=== PATIENT | female | born 1955 | race Caucasian/White ===

== ENCOUNTER 2021-05-01 09:48 | Emergency (ER) | payer MEDICARE ==
[2021-05-01] MEDS ORDERED: TORAdol 30 mg Injection IM ONE (10:27)
[2021-05-01 10:28] VITALS: O2SAT 98
[2021-05-01] MEDS ORDERED: TORAdol 30 mg Injection ONE (10:30)
[2021-05-01] MEDS ORDERED: CORTISPORIN EAR DROPS 10 ML SUSPENSION OT ONE (10:34)
--- NOTE | 2021-05-01 10:37 | ERPHSYRPT ---
- History of Present Illness Time Seen by Provider: 05/01/21 09:50 Source: patient Exam Limitations: no limitations Patient Subjective Stated Complaint: "My right ear hurts." Triage Nursing Assessment: patient reported a 3 day progressive onset of right sided ear pain with associated neck pain. She reported that she is always itching her ears. She is concerned that she may have an ear infection. She reported dizziness today. Denied any other symptoms at this time. She denied difficulty speaking, swallowing, writing, or understanding written/spoken language. Denied chest pain, shortness of breath, nausea/vomiting. Pupils 3mm bilateral with brisk reaction. Right EAC with significant erythema and purulent drainage. right sided lymphadenopathy. Left EAC without erythema/edema drainage. left TM adkins with positive cone of light. No noted focal/global neurological deficits. Physician History: Patient is a 65-year-old female presents to our emergency department for evaluation of right ear pain and drainage. Symptoms started 3 days ago. Pain has been progressively worse. There is tenderness at the right neck the same side of her involved ear likely reactive lymphadenopathy. No trauma. No fever. No headache. Patient experiences slight dizziness when she moves her head. Dizziness resolves at rest. Symptoms are moderate in intensity. Manipulation of the auricle and tragus reproduce symptoms. Patient has significant pain during otoscopy. Patient is otherwise healthy. She voices no other complaints at this time. Timing/Duration: gradual onset Severity: moderate ENT Location: ear (R) Modifying Factors: Improves With: activity Associated Symptoms: dizziness, ear drainage, No fever, No drooling, No facial pain/swelling, No headache, No motion sickness, No nasal congestion/drainage, No epistaxis, No nasal foreign body, No sinus infection, No sore throat, No difficulty swallowing Allergies/Adverse Reactions: No Known Drug Allergies Allergy (Unverified 05/01/21 10:10) Hx Tetanus, Diphtheria Vaccination/Date Given: No Hx Influenza Vaccination/Date Given: Yes Travel Risk - International Travel Have you traveled outside of the country in past 3 weeks: No - Coronavirus Screening Are you exhibiting any of the following symptoms?: No Close contact with a COVID-19 positive Pt in past 14-21 Days: No - Vaccine Status Have you recieved a Covid-19 vaccination: Yes [employer]: [employer] - Vaccination Dates Date of 2cond Vaccination (if applicable): 08/2020 - Review of Systems Constitutional: No Symptoms, No Fever, No Chills Eyes: No Symptoms Ears, Nose, & Throat: No Symptoms Respiratory: No Symptoms, No Cough, No Dyspnea Cardiac: No Symptoms, No Chest Pain, No Edema, No Syncope Abdominal/Gastrointestinal: No Symptoms, No Abdominal Pain, No Nausea, No Vomiting, No Diarrhea Genitourinary Symptoms: No Symptoms, No Dysuria Musculoskeletal: No Symptoms, No Back Pain, No Neck Pain Skin: No Symptoms, No Rash Neurological: No Symptoms, No Dizziness, No Focal Weakness, No Sensory Changes Psychological: No Symptoms Endocrine: No Symptoms Hematologic/Lymphatic: No Symptoms Immunological/Allergic: No Symptoms All Other Systems: Reviewed and Negative - Past Medical History Pertinent Past Medical History: Yes Cardiac History: Coronary Artery Disease, Hypertension Endocrine Medical History: Diabetes Type II, Hypothyroidism Female Reproductive Disorders: Breast Cancer Other Medical History: peripheral neuropathy - Past Surgical History Past Surgical History: Yes Cardiac: CABG Gastrointestinal: Appendectomy Female Surgical History: Hysterectomy Other Surgical History: R lumpectomy - Social History Smoking Status: Never smoker Exposure to second hand smoke: No Drug Use: none Patient Lives Alone: No - Female History Hx Now: No - Nursing Vital Signs Nursing Vital Signs: Initial Vital Signs Pulse Rate 71 05/01/21 09:49 Respiratory Rate 18 05/01/21 09:49 Blood Pressure 144/81 05/01/21 09:49 O2 Sat by Pulse Oximetry 98 05/01/21 09:49 Pain Scale Pain Intensity 10 - Physical Exam General Appearance: no apparent distress, alert Eye Exam: bilateral eye: normal inspection, PERRL, EOMI Ear Exam: right ear: swelling, tenderness, other (No mastoid pain swelling erythema or tenderness.), left ear: auricle normal, canal normal, TM normal Nasal Exam: normal inspection Throat Exam: pharynx normal, moist mucus membranes, No tonsillar exudate Neck Exam: normal inspection, non-tender (Right cervical lymphadenopathy likely reactive to ear infection), supple Cardiovascular/Respiratory Exam: normal breath sounds, regular rate/rhythm, heart sounds normal, No decreased breath sounds, No paradoxical movements, No tachycardia Abdominal Exam: non-tender, soft, no organomegaly Neurologic Exam: alert, oriented x 3, sensation nml, No motor deficits Skin Exam: normal color, warm, dry SpO2 Interpretation: normal SpO2: 98 O2 Delivery: Room Air - Course Nursing assessment & vital signs reviewed: Yes Ordered Tests: Medication Summary Discontinued Medications Generic Name Dose Route Start Last Admin Trade Name Malinda PRN Reason Stop Dose Admin Ketorolac Tromethamine 30 mg 05/01/21 10:27 05/01/21 10:31 Ketorolac Tromethamine 30 Mg/Ml Inj IM 05/01/21 10:28 30 mg STAT ONE Administration Ketorolac Tromethamine Confirm 05/01/21 10:30 Ketorolac Tromethamine 30 Mg/Ml Inj Administered 05/01/21 10:31 Dose 30 mg .ROUTE .STK-MED ONE Neomycin/Polymyxin/Hydrocortisone Confirm 05/01/21 10:34 Neomy Sulf/Polymyx B Sulf/Hc 10 Ml Otic Suspension Administered 05/01/21 10:35 Dose 10 ml OT .STK-MED ONE - Progress Progress: improved Progress Note: Patient reassessed. Pain improved. Patient has no otitis externa. We inserted an ear wick. Patient received Cortisporin eardrops. No mastoid tenderness or pain. No mastoiditis. Some tenderness at the right side of neck due to reactive lymphadenopathy. Patient has some dizziness when she moves her head only. Dizziness resolves when she is resting in a static position. Patient states he is ready for discharge. Patient referred to ENT for further evaluation and treatment. Vital stable. Patient voices no other complaints at this time. She states he is ready for discharge. Portions of this note were created with voice recognition technology. There may be grammatical, spelling, punctuation or sound alike errors 05/01/21 10:39 [id number] analgesics as needed as directed 05/01/21 10:44 Counseled pt/family regarding: diagnosis, need for follow-up - Departure Departure Disposition: Home Clinical Impression: Otitis externa Condition: Stable Critical Care Time: No Additional Instructions: Discharge/Care Plan NBA CALLES was seen on 05/01/21 in the Emergency Room. The patient was counseled regarding Diagnosis,Lab results, Imaging studies, need for follow up and when to return to the Emergency Room. Prescriptions given: Discharge Note I have spoken with the patient and/or caregivers. I have explained the patient's condition, diagnosis and treatment plan based on the information available to me at this time. I have answered the patient's and/or caregiver's questions and addressed any concerns. The patient and/or caregivers have as good understanding of the patient's diagnosis, condition and treatment plan as can be expected at this point. The vital signs have been stable. The patient's condition is stable and appropriate for discharge from the emergency department. The patient will pursue further outpatient evaluation with the primary care physician or other designated or consulting physician as outlined in the discharge instructions. The patient and/or caregivers are agreeable to this plan of care and follow-up instructions have been explained in detail. The patient and/or caregivers have received these instruction. The patient/and or caregivers are aware that any significant change in condition or worsening of symptoms should prompt an immediate return to this or the closest emergency department or call 911. Prescriptions: Peyman/Baci/Poly/Hc Ear Susp [Cortisporin Ear Drops 10 ml Suspension] 10 ml OT QID 7 Days #4 drops
[2021-05-01] MEDS ORDERED: CORTISPORIN EAR DROPS Solution 1OML OT ONE (10:40)
[2021-05-01 10:54] VITALS: BP 127/99; PULSE 70
== END 2021-05-01 10:53 | disposition home or self-care (01) ==
LOC: ED 09:48
DX: H60.501 Unspecified acute noninfective otitis externa, right ear (principal); H92.11 Otorrhea, right ear; R42 Dizziness and giddiness; I25.10 Atherosclerotic heart disease of native coronary artery without angina pectoris; I10 Essential (primary) hypertension; E11.42 Type 2 diabetes mellitus with diabetic polyneuropathy
CPT/HCPCS: 96372; 99283; J1885; A9270-GY

== ENCOUNTER 2021-05-03 10:10 | Emergency (ER) | payer MEDICARE ==
[2021-05-03 10:34] VITALS: PULSE 75
[2021-05-03] MEDS ORDERED: PERCOCET TABLET 5/325MG PO ONE (10:51)
[2021-05-03] MEDS ORDERED: PERCOCET TABLET 5/325MG ONE (11:02)
--- NOTE | 2021-05-03 11:02 | ERPHSYRPT ---
- History of Present Illness Time Seen by Provider: 05/03/21 10:14 Patient Subjective Stated Complaint: Pt states "I was here saturday and they put an ear wick in and gave me antibiotics drops but my ear is still killing me. I cannot sleep." Triage Nursing Assessment: Pt presented alert and oriented X 3, skin pwd. PT moaning and cursing, pt grasping at her right ear. Physician History: 65 years old female who was evaluated in the ER 2 days ago for otitis externa, was given Cortisporin presented in the ER with intermittent worsening of right earache moderate to severe intensity sharp nature with some pain in the right upper neck as well. She had a ear wick placed in on previous visit. Denies fever or chills. No difficulty swallowing. No headache. Timing/Duration: gradual onset, days (5) Severity: moderate ENT Location: ear (R) Prearrival Treatment: over the counter meds, prescription meds Associated Symptoms: ear pain (R), ear drainage, swollen glands Allergies/Adverse Reactions: No Known Drug Allergies Allergy (Verified 05/03/21 10:34) Hx Tetanus, Diphtheria Vaccination/Date Given: No Hx Influenza Vaccination/Date Given: Yes Hx Pneumococcal Vaccination/Date Given: No Immunizations Up to Date: Yes Travel Risk - International Travel Have you traveled outside of the country in past 3 weeks: No - Coronavirus Screening Are you exhibiting any of the following symptoms?: No Close contact with a COVID-19 positive Pt in past 14-21 Days: No - Vaccine Status Have you recieved a Covid-19 vaccination: Yes [employer]: [employer] - Vaccination Dates Date of 2cond Vaccination (if applicable): 08/2020 - Review of Systems Constitutional: No Symptoms Eyes: No Symptoms Ears, Nose, & Throat: Ear Pain, Ear Discharge Respiratory: No Symptoms Cardiac: No Symptoms Abdominal/Gastrointestinal: No Symptoms Musculoskeletal: No Symptoms Skin: No Symptoms Neurological: No Symptoms Endocrine: No Symptoms Hematologic/Lymphatic: Adenopathy Immunological/Allergic: No Symptoms - Past Medical History Pertinent Past Medical History: Yes Cardiac History: Coronary Artery Disease, Hypertension Endocrine Medical History: Diabetes Type II, Hypothyroidism Female Reproductive Disorders: Breast Cancer Other Medical History: peripheral neuropathy - Past Surgical History Past Surgical History: Yes Cardiac: CABG Gastrointestinal: Appendectomy Female Surgical History: Hysterectomy Other Surgical History: R lumpectomy - Social History Smoking Status: Never smoker Exposure to second hand smoke: No Drug Use: none Patient Lives Alone: No - Female History Hx Now: No - Nursing Vital Signs Nursing Vital Signs: Initial Vital Signs Temperature 97.8 F 05/03/21 10:30 Pulse Rate 75 05/03/21 10:30 Respiratory Rate 22 05/03/21 10:30 Blood Pressure 138/83 05/03/21 10:30 O2 Sat by Pulse Oximetry 97 05/03/21 10:30 Pain Scale Pain Intensity 10 - Physical Exam General Appearance: no apparent distress, alert Eye Exam: bilateral eye: normal inspection, PERRL, EOMI Ear Exam: right ear: erythema (Canal), swelling, tenderness (Reproducible with movements of pinna), other (TM not visible. No mastoid erythema or tenderness.), left ear: auricle normal, canal normal, TM normal Nasal Exam: normal inspection Throat Exam: normal, pharynx normal, No dental tenderness Neck Exam: normal inspection, non-tender, supple, full range of motion, No men ingismus Cardiovascular/Respiratory Exam: normal breath sounds, regular rate/rhythm Neurologic Exam: alert, oriented x 3, cooperative, glass block bender II-XII nml as tested Skin Exam: normal color SpO2 Interpretation: normal SpO2: 97 O2 Delivery: Room Air Ordered Tests: Medication Summary Discontinued Medications Generic Name Dose Route Start Last Admin Trade Name Malinda PRN Reason Stop Dose Admin Oxycodone/Acetaminophen 1 tab 05/03/21 10:51 Oxycodone Hcl/Apap 5 Mg/325 Mg Tablet PO 05/03/21 10:52 STAT ONE - Progress Progress: pain not gone completely Progress Note: 05/03/21 11:01 She is given symptomatic treatment for pain. She still has significant swelling and some discharge from right ear. TM is not visible. I would stop Cortisporin and start her on ofloxacin eardrops and oral antibiotics. No signs of mastoiditis. Discussed signs symptoms of worsening needing return to ER which she seems understanding. Counseled pt/family regarding: diagnosis, need for follow-up - Departure Departure Disposition: Home Clinical Impression: Otitis externa Condition: Stable Critical Care Time: No Referrals: DOCTOR,NO FAMILY [Primary Care Provider] - Follow up/PCP as directed JUAQUIN BOWERS [NON-STAFF PHY W/O PRIVILEGES] - Follow up/PCP as directed (Call today for appointment for reevaluation) RAFA GARCIA MD [ACTIVE STAFF] - Follow up/PCP as directed (1-2 days for reevaluation) Instructions: Outer Ear Infection Additional Instructions: Take pain medications as needed. Follow-up with primary care/ENT for reevaluation. Return to ER for intractable pain, fever or chills, headache etc. Prescriptions: Hydrocodone/Acetaminophen [Hydrocodone-Acetamin 5-325 mg] 1 tab PO Q6HPRN PRN 3 Days #7 tablet MDD 4 PRN Reason: Pain Amox Tr/Potass Clav. 875 mg [Augmentin 875-125 Tablet] 875 mg PO BID #20 tablet Ofloxacin Otic 5 ml [Floxin Otic 5 ML] 5 ml OT DAILY 7 Days #5 ml
[2021-05-03 11:09] VITALS: BP 132/70; O2SAT 98
== END 2021-05-03 11:39 | disposition home or self-care (01) ==
LOC: ED 10:10
DX: H60.91 Unspecified otitis externa, right ear (principal); I25.10 Atherosclerotic heart disease of native coronary artery without angina pectoris; I10 Essential (primary) hypertension; E11.42 Type 2 diabetes mellitus with diabetic polyneuropathy; Z79.891 Long term (current) use of opiate analgesic
CPT/HCPCS: 99283; A9270-GY

== ENCOUNTER 2023-04-13 06:28 | Emergency (ER) | payer MEDICARE ==
[2023-04-13 06:49] VITALS: TEMP 98.1
[2023-04-13] MEDS ORDERED: Sodium Chloride 0.9% 1000 ML 1,000 ML IV STA (07:08)
[2023-04-13] MEDS ORDERED: Zofran 4 MG/2 ML VIAL IV ONE (07:08)
[2023-04-13] MEDS ORDERED: MORPHINE SULFATE 4 MG INJ IV ONE ×2 (07:08→09:04)
[2023-04-13] MEDS ORDERED: Sodium Chloride 0.9% 1000 ML 1,000 ML ONE (07:21)
[2023-04-13] MEDS ORDERED: Zofran 4 MG/2 ML VIAL ONE (07:21)
[2023-04-13] MEDS ORDERED: MORPHINE SULFATE 4 MG INJ ONE ×2 (07:21→09:09)
--- NOTE | 2023-04-13 07:25 | ERPHSYRPT ---
- History of Present Illness Time Seen by Provider: 04/13/23 07:21 Historian: patient Exam Limitations: no limitations Patient Subjective Stated Complaint: pt states she woke up with pain in her rt back and rt hip radiating around to rt flank. started vomiting at approx 0100 Triage Nursing Assessment: pt alert and oreinted, answers questions approp. pt ambulates into room with steady gait noted. respirations nonlabored. skin warm and d ry. abd soft and nontender to light palpation. pt reports pain in rt back that radiates around to rt flank. bowel sounds x4. abd soft and nontender. Physician History: pt states she woke up with pain in her right back and right hip radiating around to right flank. started vomiting at approximately 0100 hrs Timing/Duration: today Activities at Onset: none Quality: fullness Abdominal Pain Onset Location: flank (right) Pain Radiation: groin (right) Severity of Pain-Max: moderate Severity of Pain-Current: moderate Associated Symptoms: other (constipation) Allergies/Adverse Reactions: No Known Drug Allergies Allergy (Verified 04/13/23 06:49) Home Medications: Amlodipine Besylate [Norvasc] 2.5 mg PO DAILY 04/13/23 [History] Atorvastatin Calcium [Lipitor] 20 mg PO DAILY 04/13/23 [History] Gabapentin [Neurontin ] 300 mg PO TID 04/13/23 [History] Levothyroxine Sodium [Synthroid] 125 mcg PO DAILY 04/13/23 [History] Metformin HCl [Metformin ER Osmotic] 1,000 mg PO DAILY 04/13/23 [History] Hx Tetanus, Diphtheria Vaccination/Date Given: Yes Hx Influenza Vaccination/Date Given: No Hx Pneumococcal Vaccination/Date Given: No Immunizations Up to Date: Yes Travel Risk - International Travel Have you traveled outside of the country in past 3 weeks: No - Coronavirus Screening Are you exhibiting any of the following symptoms?: No Close contact with a COVID-19 positive Pt in past 14-21 Days: No - Vaccine Status Have you recieved a Covid-19 vaccination: Yes [employer]: [employer] [place] - Vaccination Dates Date of 2cond Vaccination (if applicable): 2020 - Review of Systems Constitutional: No Fever, No Chills Eyes: No Symptoms Ears, Nose, & Throat: No Symptoms Respiratory: No Cough, No Dyspnea Cardiac: No Chest Pain, No Edema, No Syncope Abdominal/Gastrointestinal: Abdominal Pain, No Nausea, No Vomiting, No Diarrhea Genitourinary Symptoms: No Dysuria Musculoskeletal: No Back Pain, No Neck Pain Skin: No Rash Neurological: No Dizziness, No Focal Weakness, No Sensory Changes Psychological: No Symptoms Endocrine: No Symptoms All Other Systems: Reviewed and Negative - Past Medical History Pertinent Past Medical History: Yes Neurological History: Peripheral Neuropathy Cardiac History: Coronary Artery Disease, High Cholesterol, Hypertension, Other Respiratory History: No Pertinent History Endocrine Medical History: Diabetes Type II, Hypothyroidism, Other Musculoskeletal History: No Pertinent History Female Reproductive Disorders: Breast Cancer Other Medical History: BREAST CANCER 2013 [place] WITH RADIATION AND LUMPECTOMY AND H ORMONE PILL WHICH PATIENT REPORTS IS THE MED SHE HAD SIDE EFFECTS. THYROIDECTOMY 2004. HEART SURGERY FOR VALVE REPAIR AND VALVE REPLACEMENT 2019 - Past Surgical History Past Surgical History: Yes Cardiac: Valve Replacement Gastrointestinal: Appendectomy Female Surgical History: Hysterectomy Other Surgical History: R lumpectomy - Social History Smoking Status: Never smoker Exposure to second hand smoke: No Drug Use: none Patient Lives Alone: No - Nursing Vital Signs Nursing Vital Signs: Initial Vital Signs Temperature 98.1 F 04/13/23 06:35 Pulse Rate 80 04/13/23 06:35 Respiratory Rate 22 04/13/23 06:35 Blood Pressure 124/60 04/13/23 06:35 O2 Sat by Pulse Oximetry 97 04/13/23 06:35 Pain Scale Pain Intensity 10 - Physical Exam General Appearance: no apparent distress, alert Eye Exam: PERRL/EOMI, eyes nml inspection Ears, Nose, Throat Exam: normal ENT inspection, pharynx normal, moist mucous membranes Neck Exam: normal inspection, non-tender, supple, full range of motion Respiratory Exam: normal breath sounds, lungs clear, No respiratory distress Cardiovascular Exam: regular rate/rhythm, normal heart sounds Gastrointestinal/Abdomen Exam: tenderness (right flank), No mass Back Exam: normal inspection, normal range of motion, No CVA tenderness, No vertebral tenderness Extremity Exam: normal inspection, normal range of motion, pelvis stable Neurologic Exam: alert, oriented x 3, cooperative, normal mood/affect, nml cerebellar function, sensation nml, No motor deficits Skin Exam: normal color, warm, dry SpO2: 97 - Course Nursing assessment & vital signs reviewed: Yes Ordered Tests: Active Orders 24 hr Category Date Time Status EKG-ER Only STAT Care 04/13/23 07:08 Active ABDOMEN AND PELVIS W/0 CONTRAS [CT] Stat Exams 04/13/23 07:09 Completed AMYLASE Stat Lab 04/13/23 07:30 Completed CBC W DIFF Stat Lab 04/13/23 07:30 Completed CMP Stat Lab 04/13/23 07:30 Completed LIPASE Stat Lab 04/13/23 07:30 Completed UA W/RFX UR CULTURE Stat Lab 04/13/23 08:44 Received Medication Summary Generic Name Dose Route Start Last Admin Trade Name Freq PRN Reason Stop Dose Admin Nystatin 1 gm 04/13/23 10:00 04/13/23 08:23 Nystatin 15 Gm Powder TP 05/13/23 09:59 1 gm BID SLIM Administration Discontinued Medications Generic Name Dose Route Start Last Admin Trade Name Freq PRN Reason Stop Dose Admin Sodium Chloride 1,000 mls @ 999 mls/hr 04/13/23 07:08 04/13/23 08:37 Sodium Chloride 0.9% 1000 Ml IV 04/13/23 08:08 Infused .Q1H1M STA Infusion Sodium Chloride Confirm 04/13/23 07:21 Sodium Chloride 0.9% 1000 Ml Administered 04/13/23 07:22 Dose 1,000 mls @ ud .ROUTE .STK-MED ONE Ketorolac Tromethamine 30 mg 04/13/23 09:04 Ketorolac Tromethamine 30 Mg/Ml Inj IV 04/13/23 09:05 STAT ONE Ketorolac Tromethamine Confirm 04/13/23 09:09 Ketorolac Tromethamine 30 Mg/Ml Inj Administered 04/13/23 09:10 Dose 30 mg .ROUTE .STK-MED ONE Morphine Sulfate 4 mg 04/13/23 07:08 04/13/23 07:23 Morphine Sulfate 4 Mg/Ml Injection IV 04/13/23 07:09 4 mg STAT ONE Administration Morphine Sulfate Confirm 04/13/23 07:21 Morphine Sulfate 4 Mg/Ml Injection Administered 04/13/23 07:22 Dose 4 mg .ROUTE .STK-MED ONE Morphine Sulfate 4 mg 04/13/23 09:04 Morphine Sulfate 4 Mg/Ml Injection IV 04/13/23 09:05 STAT ONE Morphine Sulfate Confirm 04/13/23 09:09 Morphine Sulfate 4 Mg/Ml Injection Administered 04/13/23 09:10 Dose 4 mg .ROUTE .STK-MED ONE Ondansetron HCl 4 mg 04/13/23 07:08 04/13/23 07:22 Ondansetron Hcl 4 Mg/2 Ml Vial IV 04/13/23 07:09 4 mg STAT ONE Administration Ondansetron HCl Confirm 04/13/23 07:21 Ondansetron Hcl 4 Mg/2 Ml Vial Administered 04/13/23 07:22 Dose 4 mg .ROUTE .STK-MED ONE Tamsulosin HCl 0.4 mg 04/13/23 08:51 04/13/23 08:58 Tamsulosin Hcl 0.4 Mg Cap PO 04/13/23 08:52 0.4 mg DAILY ONE Administration Tamsulosin HCl Confirm 04/13/23 08:57 Tamsulosin Hcl 0.4 Mg Cap Administered 04/13/23 08:58 Dose 0.4 mg .ROUTE .STK-MED ONE Lab/Rad Data: Laboratory Result Diagrams 04/13/23 07:30 04/13/23 07:30 Laboratory Results 04/13/23 04/13/23 Range/Units 07:30 07:30 WBC 9.4 (4.0-10.5) x10^3/uL RBC 4.28 (4.1-5.4) x10^6/uL Hgb 13.5 (12.0-16.0) g/dL Hct 41.6 (35-47) % MCV 97.2 (78-100) fL MCH 31.5 (26-32) pg MCHC 32.5 (32-36) g/dL RDW 13.8 (11.5-14.0) % Plt Count 165 (150-450) x10^3/uL MPV 11.3 H (7.5-11.0) fL Gran % 81.5 H (36.0-66.0) % Immature Gran % (Auto) 0.5 H (0.00-0.4) % Nucleat RBC Rel Count 0.0 (0.00-0.1) % Eos # (Auto) 0.07 (0-0.5) x10^3/uL Immature Gran # (Auto) 0.05 H (0.00-0.03) x10^3u/L Absolute Lymphs (auto) 1.01 (1.0-4.6) x10^3/uL Absolute Monos (auto) 0.54 (0.0-1.3) x10^3/uL Absolute Nucleated RBC 0.00 (0.00-0.01) x10^3u/L Lymphocytes % 10.8 L (24.0-44.0) % Monocytes % 5.8 (0.0-12.0) % Eosinophils % 0.7 (0.00-5.0) % Basophils % 0.7 (0.0-0.4) % Absolute Granulocytes 7.62 H (1.4-6.9) x10^3/uL Basophils # 0.07 (0-0.4) x10^3/uL Sodium 136 L (137-145) mmol/L Potassium 4.4 (3.5-5.1) mmol/L Chloride 102 (98-107) mmol/L Carbon Dioxide 26 (22-30) mmol/L Anion Gap 12.8 (5-15) MEQ/L BUN 8 (7-17) mg/dL Creatinine 0.53 (0.52-1.04) mg/dL Estimated GFR 101.9 ML/MIN Glucose 204 H (74-106) mg/dL Calcium 9.0 (8.4-10.2) mg/dL Total Bilirubin 1.00 (0.2-1.3) mg/dL AST 38 H (14-36) U/L ALT 29 (0-35) U/L Alkaline Phosphatase 155 H (38-126) U/L Serum Total Protein 7.6 (6.3-8.2) g/dL Albumin 4.0 (3.5-5.0) g/dL Amylase 56 (30-110) U/L Lipase 60 (23-300) U/L Name: NBA CALLES Attending Physician: TOMASA ADRIAN IMAGING REPORT : 1955 Age: 67 Sex: F Location: ED Report #: [id number] Exam Date: 04/13/23 Status: [facility] Radiology #: Procedures: [id number] CT/ABDOMEN AND PELVIS W/0 CONTRAS CLINICAL HISTORY:right flank pain COMPARISON:None. TECHNIQUE:A CT scan of the abdomen and pelvis was performed without contrast. Coronal and sagittal reconstructive images were also obtained and submitted for diagnostic interpretation. FINDINGS: Abdomen: The liver is moderately enlarged measuring 18.5 cm. It displays coarse parenchymal texture and uneven margins. Right hepatic lobe segment V small hypodense focal area measures 12 mm. The intrahepatic biliary radicals and the bile ducts are normal. Multiple gallbladder stones were seen the largest measuring [address] evidence of acute cholecystitis. The spleen, pancreas, and adrenal glands are unremarkable. Right ureteric distal portion small obstructing calculus measuring 4 mm (HU 410) with resulting mild dilatation of the upstream ureter and pelvicalyceal system. Starndy nikky-renal and nikky-ureteric fat planes were noticed. No right renal calculi or masses. The left kidney was unremarkable. No calculi, masses, or hydronephrosis. No left ureteric stones. Bilateral renal small cortical cysts of fluid density only one at the right side that shows minute hyperdense focus/calcification measures 17 mm (Bosniak II). The ascending colon, the transverse colon, the descending colon, visualized small bowel loops are unremarkable. No CT evidence of acute appendicitis. There is no evidence of significant enlargement of the mesenteric or retroperitoneal lymph nodes. No ascites Pelvis: The urinary bladder was empty. The uterus was not visualized likely surgically removed. No gross adnexal abnormality was seen. The rectosigmoid colon is unremarkable. No evidence of pelvic lymphadenopathy. A scan through the lower chest reveals sternotomy sutures with bilateral lungs basal subpleural thin atelectatic bands. The scanned osseous structures were unremarkable. IMPRESSION: 1. Right distal ureteric small obstructing calculus measuring 4 mm (HU 410) with resulting mild dilatation of the upstream ureter and pelvicalyceal system. 2. Multiple gallbladder stones without CT evidence of acute cholecystitis. 3. Moderate hepatomegaly with a picture of chronic liver disease and right hepatic lobe segment V small hypodense focal area measures 12 mm would recommend further workup and if indicated CT triphasic is advised. Electronically Signed by: Mane Grubbs MD. (04/13/2023 08:45:13 EST) - Progress Progress: improved, pain not gone completely Progress Note: 04/13/23 08:58 She did not have this type of symptoms before. Patient is informed about CAT scan results which include right ureteropelvic junction stone which is same 4 mm almost going to pass into the bladder and patient also has a gallstone and hepatomegaly. Patient is explained about how she will past kidney stone into her bladder and afterwards she may have passed that in her urine. We advised her to strain her urine if possible and if she can find the stone then she can return it for the stone analysis. Patient is also informed about gallstones which are nonobstructing but she is advised that she is still take care of that as an outpatient surgery in the future. She understood that and she is going to talk to her primary care physician. Counseled pt/family regarding: lab results, diagnosis, need for follow-up, rad results Medical Desision Making - Independent Historian Additional History obtained from: Spouse - Diagnostic Testing Diagnostic test were ordered, analyzed, and reviewed by me: Yes Radiological Interpretation: Teleradiologist Report - Risk of complications Low Risk: Low risk of morbidity from additional dx testing or treatment The pt has a mod risk of morbidity or mortality based on: Need for prescription drug management, Need for minor surgical intervention in patient with know risk factors - Departure Departure Disposition: Home Clinical Impression: Right distal ureteral calculus, Gall bladder stones, Enlargement of liver Type 2 diabetes mellitus Qualifiers: Diabetes mellitus long-term insulin use: without intermediate manager use Diabetes mellitus complication status: with hyperglycemia Qualified Code(s): E11.65 - Type 2 diabetes mellitus with hyperglycemia Condition: Stable Critical Care Time: No Referrals: ANAI ALLAN MD [Primary Care Provider] - Follow Up with PCP/3 days Instructions: Kidney Stones (DC), Flank Pain Additional Instructions: On CAT scan you have a right-sided kidney stone which is almost going to pass into your bladder. Please strain your urine and if you can get the stone sample please bring it to the lab for stone analysis. You also have a gallstone but it is not bothering you at this point of time. Follow-up with your primary care physician for management of gallstone as an outpatient. Follow-up with your primary care physician in 2 to 3 days Discharge/Care Plan NBA CALLES was seen on 04/13/23 in the Emergency Room. The patient was counseled regarding Diagnosis,Lab results, Imaging studies, need for follow up and when to return to the Emergency Room. Prescriptions given: Discharge Note I have spoken with the patient and/or caregivers. I have explained the patient's condition, diagnosis and treatment plan based on the information available to me at this time. I have answered the patient's and/or caregiver's questions and addressed any concerns. The patient and/or caregivers have as good understanding of the patient's diagnosis, condition and treatment plan as can be expected at this point. The vital signs have been stable. The patient's condition is stable and appropriate for discharge from the emergency department. The patient will pursue further outpatient evaluation with the primary care physician or other designated or consulting physician as outlined in the discharge instructions. The patient and/or caregivers are agreeable to this plan of care and follow-up instructions have been explained in detail. The patient and/or caregivers have received these instruction. The patient/and or caregivers are aware that any significant change in condition or worsening of symptoms should prompt an immediate return to this or the closest emergency department or call 911. Prescriptions: Tamsulosin HCl 0.4 mg [Flomax 0.4 MG] 0.4 mg PO DAILY #15 cap
[2023-04-13 07:53] LABS: Absolute Neutrophil Ct (ANC) 7.62 x10^3/uL (1.4-6.9); BASOPHIL % 0.7 % (0.0-0.4); Basophil (Absolute #) 0.07 x10^3/uL (0-0.4); Eosinophil % 0.7 % (0.00-5.0); Eosinophil (Absolute #) 0.07 x10^3/uL (0-0.5); Hematocrit 41.6 % (35-47); Hemoglobin 13.5 g/dL (12.0-16.0); IMMATURE GRAN # 0.05 x10^3u/L (0.00-0.03); IMMATURE GRAN % 0.5 % (0.00-0.4); Lymphocyte (Absolute #) 1.01 x10^3/uL (1.0-4.6); Lymphocytes % 10.8 % (24.0-44.0); Mean Cell Volume 97.2 fL (78-100); Mean Corpuscular Hemoglobin 31.5 pg (26-32); Mean Corpuscular Hgb Concent. 32.5 g/dL (32-36); Mean Platelet Volume 11.3 fL (7.5-11.0); Monocyte (Absolute #) 0.54 x10^3/uL (0.0-1.3); Monocytes % 5.8 % (0.0-12.0); Neutrophil % 81.5 % (36.0-66.0); Platelet Count 165 x10^3/uL (150-450); Red Blood Count 4.28 x10^6/uL (4.1-5.4); Red Cell Distribution Width 13.8 % (11.5-14.0); White Blood Count 9.4 x10^3/uL (4.0-10.5)
[2023-04-13 08:06] LABS: ANION GAP 12.8 MEQ/L (5-15); Creatinine 1 0.53 mg/dL (0.52-1.04); EST GLOMERULAR FILTRATION RATE 101.9 ML/MIN; Potassium 4.4 mmol/L (3.5-5.1); Total Protein 7.6 g/dL (6.3-8.2)
--- NOTE | 2023-04-13 08:48 | XRAY ---
CLINICAL HISTORY:right flank pain COMPARISON:None. TECHNIQUE:A CT scan of the abdomen and pelvis was performed without contrast. Coronal and sagittal reconstructive images were also obtained and submitted for diagnostic interpretation. FINDINGS: Abdomen: The liver is moderately enlarged measuring 18.5 cm. It displays coarse parenchymal texture and uneven margins. Right hepatic lobe segment V small hypodense focal area measures 12 mm. The intrahepatic biliary radicals and the bile ducts are normal. Multiple gallbladder stones were seen the largest measuring [address] evidence of acute cholecystitis. The spleen, pancreas, and adrenal glands are unremarkable. Right ureteric distal portion small obstructing calculus measuring 4 mm (HU 410) with resulting mild dilatation of the upstream ureter and pelvicalyceal system. Starndy nikky-renal and nikky-ureteric fat planes were noticed. No right renal calculi or masses. The left kidney was unremarkable. No calculi, masses, or hydronephrosis. No left ureteric stones. Bilateral renal small cortical cysts of fluid density only one at the right side that shows minute hyperdense focus/calcification measures 17 mm (Bosniak II). The ascending colon, the transverse colon, the descending colon, visualized small bowel loops are unremarkable. No CT evidence of acute appendicitis. There is no evidence of significant enlargement of the mesenteric or retroperitoneal lymph nodes. No ascites Pelvis: The urinary bladder was empty. The uterus was not visualized likely surgically removed. No gross adnexal abnormality was seen. The rectosigmoid colon is unremarkable. No evidence of pelvic lymphadenopathy. A scan through the lower chest reveals sternotomy sutures with bilateral lungs basal subpleural thin atelectatic bands. The scanned osseous structures were unremarkable. IMPRESSION: 1. Right distal ureteric small obstructing calculus measuring 4 mm (HU 410) with resulting mild dilatation of the upstream ureter and pelvicalyceal system. 2. Multiple gallbladder stones without CT evidence of acute cholecystitis. 3. Moderate hepatomegaly with a picture of chronic liver disease and right hepatic lobe segment V small hypodense focal area measures 12 mm would recommend further workup and if indicated CT triphasic is advised. Electronically Signed by: Mane Grubbs MD. (04/13/2023 08:45:13 EST)
[2023-04-13] MEDS ORDERED: Flomax 0.4 MG PO ONE (08:51)
[2023-04-13] MEDS ORDERED: Flomax 0.4 MG ONE (08:57)
[2023-04-13] MEDS ORDERED: TORAdol 30 mg Injection IV ONE (09:04)
[2023-04-13 09:08] LABS: Appearance Cloudy (Clear); Bilirubin Negative (Negative); Blood Large (Negative); Glucose, Urine Negative (Negative); Ketones Trace (Negative); Leukocyte Esterase Moderate (Negative); Nitrite Positive (Negative); Ph 5.5 (4.6-8.0); Protein,Urine Dip 30 (Negative)
[2023-04-13] MEDS ORDERED: TORAdol 30 mg Injection ONE (09:09)
[2023-04-13 09:24] LABS: RBC 21-50 /HPF (0-5); WBC 51-100 /HPF (0-5)
[2023-04-13 09:25] LABS: Bacteria Many /HPF (None Seen)
[2023-04-13 09:37] LABS: ADD URINE CULTURE? YES (NO); Epithelial Cells Few /HPF (None Seen)
[2023-04-13 09:42] VITALS: BP 110/59; PULSE 89; RESP 20; O2SAT 95
[2023-04-13] MEDS ORDERED: NYSTOP POWDER 15 GM TP SCH (10:00)
== END 2023-04-13 09:43 | disposition home or self-care (01) ==
LOC: ED 06:28
DX: N20.1 Calculus of ureter (principal); K80.20 Calculus of gallbladder without cholecystitis without obstruction; R16.0 Hepatomegaly, not elsewhere classified; E11.65 Type 2 diabetes mellitus with hyperglycemia; M25.551 Pain in right hip; M54.9 Dorsalgia, unspecified; R10.9 Unspecified abdominal pain; R11.10 Vomiting, unspecified; E78.5 Hyperlipidemia, unspecified; I10 Essential (primary) hypertension; Z79.84 Long term (current) use of oral hypoglycemic drugs; Z79.899 Other long term (current) drug therapy
CPT/HCPCS: 36000; 36415; 74176; 80053; 81001; 82150; 83690; 85025; 87077; 87086; 87186; 93005; 96374; 96375; 96376; 99284; J1885; J2270; J2405; A9270-GY

== ENCOUNTER 2023-04-14 01:36 | Emergency (ER) | payer MEDICARE ==
[2023-04-14] MEDS ORDERED: Sodium Chloride 0.9% 1000 ML 1,000 ML IV STA ×2 (01:38→03:32)
[2023-04-14] MEDS ORDERED: Sodium Chloride 0.9% 1000 ML 1,000 ML ONE ×2 (01:54→03:28)
[2023-04-14 02:15] LABS: Absolute Neutrophil Ct (ANC) 12.09 x10^3/uL (1.4-6.9); BASOPHIL % 0.4 % (0.0-0.4); Basophil (Absolute #) 0.05 x10^3/uL (0-0.4); Eosinophil % 0.2 % (0.00-5.0); Eosinophil (Absolute #) 0.02 x10^3/uL (0-0.5); Hematocrit 40.7 % (35-47); Hemoglobin 12.8 g/dL (12.0-16.0); IMMATURE GRAN # 0.07 x10^3u/L (0.00-0.03); IMMATURE GRAN % 0.5 % (0.00-0.4); Lymphocyte (Absolute #) 0.42 x10^3/uL (1.0-4.6); Lymphocytes % 3.3 % (24.0-44.0); Mean Cell Volume 101.2 fL (78-100); Mean Corpuscular Hemoglobin 31.8 pg (26-32); Mean Corpuscular Hgb Concent. 31.4 g/dL (32-36); Mean Platelet Volume 10.9 fL (7.5-11.0); Monocyte (Absolute #) 0.19 x10^3/uL (0.0-1.3); Monocytes % 1.5 % (0.0-12.0); Neutrophil % 94.1 % (36.0-66.0); Platelet Count 133 x10^3/uL (150-450); Red Blood Count 4.02 x10^6/uL (4.1-5.4); Red Cell Distribution Width 14.1 % (11.5-14.0); White Blood Count 12.8 x10^3/uL (4.0-10.5)
[2023-04-14 02:41] LABS: ALBUMIN 3.8 g/dL (3.5-5.0); ALKALINE PHOSPHATASE 93 U/L (38-126); ANION GAP 15.2 MEQ/L (5-15); BLOOD UREA NITROGEN 11 mg/dL (7-17); CHLORIDE 100 mmol/L (98-107); Calcium 8.3 mg/dL (8.4-10.2); Carbon Dioxide 22 mmol/L (22-30); Creatinine 1 0.96 mg/dL (0.52-1.04); EST GLOMERULAR FILTRATION RATE 65.3 ML/MIN; ETHYL ALCOHOL < 10 mg/dL (0-10); Glucose 152 mg/dL (74-106); Potassium 3.8 mmol/L (3.5-5.1); SGOT/AST 36 U/L (14-36); SODIUM 133 mmol/L (137-145); Total Protein 7.1 g/dL (6.3-8.2)
--- NOTE | 2023-04-14 02:51 | XRAY ---
CLINICAL HISTORY:fall COMPARISON:None. TECHNIQUE:Axial non-contrast CT scan of the brain was performed from the skull base to the high parietal region. Coronal and sagittal reconstructions were also obtained. FINDINGS: No definite calvarium fractures. No intracerebral or extra axial hematoma. Prominent ventricular system and extra-axial CSF spaces suggestive of age-related involutional changes. The visualized brain parenchyma shows a normal appearance. No focal parenchymal abnormalities are demonstrated. Villegas-white matter differentiation is maintained. No midline shifts or deformity. Normal size and configuration of the cerebral ventricles. Normal CT appearance of the posterior fossa structures namely the cerebellar hemispheres, brainstem and cerebellar peduncles. Scanned paranasal sinuses are clear. IMPRESSION: 1. No definite calvarium fractures. 2. No intracerebral or extra axial hematoma. 3. Appropriate age-related involutional changes. Electronically Signed by: Mane Grubbs MD. (04/14/2023 02:46:58 EST)
[2023-04-14 03:01] LABS: SGPT/ALT 24 U/L (0-35); TROPONIN 0.036 ng/mL (0.000-0.034)
[2023-04-14] MEDS ORDERED: TYLENOL 325 MG PO STA (03:02)
[2023-04-14] MEDS ORDERED: TYLENOL 325 MG ONE (03:03)
[2023-04-14] MEDS ORDERED: ROCEPHIN 1 Gm-D5w 50 ml Bag** 1 G/50 ML IVPB IV STA (03:24)
--- NOTE | 2023-04-14 03:26 | ERPHSYRPT ---
- History of Present Illness Time Seen by Provider: 04/14/23 03:19 Source: patient Exam Limitations: no limitations Patient Subjective Stated Complaint: EMS states that pt fell going to the bathroom Triage Nursing Assessment: pt came into the er via ambulance; pt was transferred to cot per ems and ed staff; c/o fall; pt denies pain; skin pink, dry, hot to the touch; mucus membranes pink and dry, cracking present to lips; no respiratory distress present; pt is answering questions appropriately; axo x4; pupils 3 mm and PERRL; abrasion to RLE; tachycardic; febrile Physician History: Patient is 67-year-old female with significant past medical history of diabetes hypertension was recently in the emergency room with the right side renal colic which was treated with Flomax to pass the kidney stone down. Patient was doing okay and at around 1:00 patient went to the bathroom and suddenly patient became confused and fell so patient was brought into the emergency room. According to the EMS patient was very confused and talking out of the head and heart rate was high. When patient came to the emergency room patient was alert awake oriented to time place and person and was talking appropriately. Timing/Duration: today Severity: mild Associated Symptoms: weakness Allergies/Adverse Reactions: No Known Drug Allergies Allergy (Verified 04/14/23 01:40) Home Medications: Amlodipine Besylate [Norvasc] 2.5 mg PO DAILY 04/13/23 [History] Atorvastatin Calcium [Lipitor] 20 mg PO DAILY 04/13/23 [History] Gabapentin [Neurontin ] 300 mg PO TID 04/13/23 [History] Levothyroxine Sodium [Synthroid] 125 mcg PO DAILY 04/13/23 [History] Metformin HCl [Metformin ER Osmotic] 1,000 mg PO DAILY 04/13/23 [History] Hx Tetanus, Diphtheria Vaccination/Date Given: Yes Hx Influenza Vaccination/Date Given: No Hx Pneumococcal Vaccination/Date Given: No Travel Risk - International Travel Have you traveled outside of the country in past 3 weeks: No - Coronavirus Screening Are you exhibiting any of the following symptoms?: No Close contact with a COVID-19 positive Pt in past 14-21 Days: No - Vaccine Status Have you recieved a Covid-19 vaccination: Yes 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: [employer] - Vaccination Dates Date of 2cond Vaccination (if applicable): 2020 - Review of Systems Constitutional: Weakness, No Fever, No Chills Eyes: No Symptoms Ears, Nose, & Throat: No Symptoms Respiratory: No Cough, No Dyspnea Cardiac: No Chest Pain, No Edema, No Syncope Abdominal/Gastrointestinal: No Abdominal Pain, No Nausea, No Vomiting, No Delphine rrhea Genitourinary Symptoms: No Dysuria Musculoskeletal: No Back Pain, No Neck Pain Skin: No Rash Neurological: No Dizziness, No Focal Weakness, No Sensory Changes Psychological: No Symptoms Endocrine: No Symptoms All Other Systems: Reviewed and Negative - Past Medical History Pertinent Past Medical History: Yes Neurological History: Peripheral Neuropathy Cardiac History: Coronary Artery Disease, High Cholesterol, Hypertension, Other Respiratory History: No Pertinent History Endocrine Medical History: Diabetes Type II, Hypothyroidism, Other Musculoskeletal History: No Pertinent History Female Reproductive Disorders: Breast Cancer Other Medical History: BREAST CANCER 2013 [place] WITH RADIATION AND LUMPECTOMY AND HORMONE PILL WHICH PATIENT REPORTS IS THE MED SHE HAD SIDE EFFECTS. THYROIDECTOMY 2004. HEART SURGERY FOR VALVE REPAIR AND VALVE REPLACEMENT 2018 - Past Surgical History Past Surgical History: Yes Cardiac: Valve Replacement Gastrointestinal: Appendectomy Female Surgical History: Hysterectomy Other Surgical History: R lumpectomy - Social History Smoking Status: Never smoker Exposure to second hand smoke: No Drug Use: none Patient Lives Alone: No - Nursing Vital Signs Nursing Vital Signs: Initial Vital Signs Temperature 102.8 F 04/14/23 01:37 Pulse Rate 152 H 04/14/23 01:37 Respiratory Rate 18 04/14/23 01:37 Blood Pressure 109/52 04/14/23 01:37 O2 Sat by Pulse Oximetry 87 L 04/14/23 01:37 Pain Scale Pain Intensity 0 - Physical Exam General Appearance: no apparent distress, alert Eye Exam: PERRL/EOMI, eyes nml inspection Ears, Nose, Throat Exam: normal ENT inspection, TMs normal, pharynx normal, moist mucous membranes Neck Exam: normal inspection, non-tender, supple, full range of motion Respiratory Exam: normal breath sounds, lungs clear, No respiratory distress Cardiovascular Exam: regular rate/rhythm, normal heart sounds, normal peripheral pulses Gastrointestinal/Abdomen Exam: soft, normal bowel sounds, No tenderness, No mass Back Exam: normal inspection, normal range of motion, No CVA tenderness, No vertebral tenderness Extremity Exam: normal inspection, normal range of motion, pelvis stable Neurologic Exam: alert, oriented x 3, cooperative, normal mood/affect, nml cerebellar function, nml station & gait, sensation nml, No motor deficits Skin Exam: normal color, warm, dry, No rash Lymphatic Exam: No adenopathy SpO2: 96 - Course Nursing assessment & vital signs reviewed: Yes EKG Interpreted by Me: Sinus Tach - CT Exams Head CT Interpretation: Tele-radiologist Report, No/Intracranial Hemorrhag Ordered Tests: Active Orders 24 hr Category Date Time Status EKG-ER Only STAT Care 04/14/23 01:38 Active ABDOMEN AND PELVIS W/0 CONTRAS [CT] Stat Exams 04/14/23 03:32 Completed CHEST 1 VIEW (PORTABLE) Stat Exams 04/14/23 01:41 Taken HEAD WITHOUT CONTRAST [CT] Stat Exams 04/14/23 01:40 Completed CBC W DIFF Stat Lab 04/14/23 02:13 Completed CMP Stat Lab 04/14/23 02:13 Completed ETHYL ALCOHOL Stat Lab 04/14/23 02:13 Completed TROPONIN Stat Lab 04/14/23 02:13 Completed UA W/RFX UR CULTURE Stat Lab 04/14/23 04:20 Completed Urine Triage Profile Stat Lab 04/14/23 04:20 Completed Medication Summary Generic Name Dose Route Start Last Admin Trade Name Freq PRN Reason Stop Dose Admin Sodium Chloride 1,000 mls @ 999 mls/hr 04/14/23 03:30 04/14/23 05:35 Sodium Chloride 0.9% 1000 Ml IV 05/14/23 03:29 Not Given .Q1H1M SLIM Discontinued Medications Generic Name Dose Route Start Last Admin Trade Name Freq PRN Reason Stop Dose Admin Acetaminophen 650 mg 04/14/23 03:02 04/14/23 03:03 Acetaminophen 325 Mg Tablet PO 04/14/23 03:03 650 mg STAT STA Administration Acetaminophen Confirm 04/14/23 03:03 Acetaminophen 325 Mg Tablet Administered 04/14/23 03:04 Dose 650 mg .ROUTE .STK-MED ONE Sodium Chloride 1,000 mls @ 999 mls/hr 04/14/23 01:38 04/14/23 03:07 Sodium Chloride 0.9% 1000 Ml IV 04/14/23 02:38 Infused .Q1H1M STA Infusion Sodium Chloride Confirm 04/14/23 01:54 Sodium Chloride 0.9% 1000 Ml Administered 04/14/23 01:55 Dose 1,000 mls @ ud .ROUTE .STK-MED ONE Ceftriaxone Sodium/Dextrose 1 g in 50 mls @ 100 mls/hr 04/14/23 03:24 04/14/23 04:20 Rocephin 1 Gm-D5w 50 Ml Bag IV 04/14/23 03:53 Infused STAT STA Infusion Ceftriaxone Sodium/Dextrose Confirm 04/14/23 03:28 Rocephin 1 Gm-D5w 50 Ml Bag Administered 04/14/23 03:29 Dose 1 g in 50 mls @ ud IV .STK-MED ONE Sodium Chloride 1,000 mls @ 999 mls/hr 04/14/23 03:32 04/14/23 03:35 Sodium Chloride 0.9% 1000 Ml IV 04/14/23 04:32 Not Given .Q1H1M STA Lab/Rad Data: Laboratory Result Diagrams 04/14/23 02:13 04/14/23 02:13 Laboratory Results 04/14/23 04/14/23 04/14/23 Range/Units 04:20 04:20 03:15 WBC (4.0-10.5) x10^3/uL RBC (4.1-5.4) x10^6/uL Hgb (12.0-16.0) g/dL Hct (35-47) % MCV (78-100) fL MCH (26-32) pg MCHC (32-36) g/dL RDW (11.5-14.0) % Plt Count (150-450) x10^3/uL MPV (7.5-11.0) fL Gran % (36.0-66.0) % Immature Gran % (Auto) (0.00-0.4) % Nucleat RBC Rel Count (0.00-0.1) % Eos # (Auto) (0-0.5) x10^3/uL Immature Gran # (Auto) (0.00-0.03) x10^3u/L Absolute Lymphs (auto) (1.0-4.6) x10^3/uL Absolute Monos (auto) (0.0-1.3) x10^3/uL Absolute Nucleated RBC (0.00-0.01) x10^3u/L Lymphocytes % (24.0-44.0) % Monocytes % (0.0-12.0) % Eosinophils % (0.00-5.0) % Basophils % (0.0-0.4) % Absolute Granulocytes (1.4-6.9) x10^3/uL Basophils # (0-0.4) x10^3/uL Sodium (137-145) mmol/L Potassium (3.5-5.1) mmol/L Chloride (98-107) mmol/L Carbon Dioxide (22-30) mmol/L Anion Gap (5-15) MEQ/L BUN (7-17) mg/dL Creatinine (0.52-1.04) mg/dL Estimated GFR ML/MIN Glucose (74-106) mg/dL Calcium (8.4-10.2) mg/dL Total Bilirubin (0.2-1.3) mg/dL AST (14-36) U/L ALT (0-35) U/L Alkaline Phosphatase (38-126) U/L Troponin I (0.000-0.034) ng/mL Serum Total Protein (6.3-8.2) g/dL Albumin (3.5-5.0) g/dL Urine Color Dark Yellow A (Yellow) Urine Appearance Turbid A (Clear) Urine pH 5.0 (4.6-8.0) Ur Specific [place] 1.020 (1.005-1.030) Urine Protein 100 A (Negative) Urine Glucose (UA) Negative (Negative) mg/dL Urine Ketones Trace A (Negative) Urine Blood Large A (Negative) Urine Nitrite Positive A (Negative) Urine Bilirubin Small A (Negative) Urine Urobilinogen 1.0 A (0.2) mg/dL Ur Leukocyte Esterase Large A (Negative) U Hyaline Cast (Auto) 11-20 (0-2) /LPF Urine Microscopic RBC 21-50 A (0-5) /HPF Urine Microscopic WBC >100 A (0-5) /HPF Ur Epithelial Cells Moderate A (None Seen) /HPF Urine Bacteria Many A (None Seen) /HPF Urine Culture Reflexed NO (NO) Urine Opiates Level POSITIVE A (NEGATIVE) Ur Methadone NEGATIVE (NEGATIVE) Urine Barbiturates NEGATIVE (NEGATIVE) Ur Phencyclidine (PCP) NEGATIVE (NEGATIVE) Urine Amphetamine NEGATIVE (NEGATIVE) U Benzodiazepine Level NEGATIVE (NEGATIVE) Urine Cocaine NEGATIVE (NEGATIVE) Urine Marijuana (THC) NEGATIVE (NEGATIVE) Ethyl Alcohol (0-10) mg/dL Influenza Type A Ag NEGATIVE (NEGATIVE) Influenza Type B Ag NEGATIVE (NEGATIVE) RSV (PCR) NEGATIVE (NEGATIVE) SARS-CoV-2 (PCR) NEGATIVE (NEGATIVE) 04/14/23 04/14/23 Range/Units 02:13 02:13 WBC 12.8 H (4.0-10.5) x10^3/uL RBC 4.02 L (4.1-5.4) x10^6/uL Hgb 12.8 (12.0-16.0) g/dL Hct 40.7 (35-47) % MCV 101.2 H (78-100) fL MCH 31.8 (26-32) pg MCHC 31.4 L (32-36) g/dL RDW 14.1 H (11.5-14.0) % Plt Count 133 L (150-450) x10^3/uL MPV 10.9 (7.5-11.0) fL Gran % 94.1 H (36.0-66.0) % Immature Gran % (Auto) 0.5 H (0.00-0.4) % Nucleat RBC Rel Count 0.0 (0.00-0.1) % Eos # (Auto) 0.02 (0-0.5) x10^3/uL Immature Gran # (Auto) 0.07 H (0.00-0.03) x10^3u/L Absolute Lymphs (auto) 0.42 L (1.0-4.6) x10^3/uL Absolute Monos (auto) 0.19 (0.0-1.3) x10^3/uL Absolute Nucleated RBC 0.00 (0.00-0.01) x10^3u/L Lymphocytes % 3.3 L (24.0-44.0) % Monocytes % 1.5 (0.0-12.0) % Eosinophils % 0.2 (0.00-5.0) % Basophils % 0.4 (0.0-0.4) % Absolute Granulocytes 12.09 H (1.4-6.9) x10^3/uL Basophils # 0.05 (0-0.4) x10^3/uL Sodium 133 L (137-145) mmol/L Potassium 3.8 (3.5-5.1) mmol/L Chloride 100 (98-107) mmol/L Carbon Dioxide 22 (22-30) mmol/L Anion Gap 15.2 H (5-15) MEQ/L BUN 11 (7-17) mg/dL Creatinine 0.96 (0.52-1.04) mg/dL Estimated GFR 65.3 ML/MIN Glucose 152 H (74-106) mg/dL Calcium 8.3 L (8.4-10.2) mg/dL Total Bilirubin 0.90 (0.2-1.3) mg/dL AST 36 (14-36) U/L ALT 24 (0-35) U/L Alkaline Phosphatase 93 (38-126) U/L Troponin I 0.036 H* (0.000-0.034) ng/mL Serum Total Protein 7.1 (6.3-8.2) g/dL Albumin 3.8 (3.5-5.0) g/dL Urine Color (Yellow) Urine Appearance (Clear) Urine pH (4.6-8.0) Ur Specific [place] (1.005-1.030) Urine Protein (Negative) Urine Glucose (UA) (Negative) mg/dL Urine Ketones (Negative) Urine Blood (Negative) Urine Nitrite (Negative) Urine Bilirubin (Negative) Urine Urobilinogen (0.2) mg/dL Ur Leukocyte Esterase (Negative) U Hyaline Cast (Auto) (0-2) /LPF Urine Microscopic RBC (0-5) /HPF Urine Microscopic WBC (0-5) /HPF Ur Epithelial Cells (None Seen) /HPF Urine Bacteria (None Seen) /HPF Urine Culture Reflexed (NO) Urine Opiates Level (NEGATIVE) Ur Methadone (NEGATIVE) Urine Barbiturates (NEGATIVE) Ur Phencyclidine (PCP) (NEGATIVE) Urine Amphetamine (NEGATIVE) U Benzodiazepine Level (NEGATIVE) Urine Cocaine (NEGATIVE) Urine Marijuana (THC) (NEGATIVE) Ethyl Alcohol < 10 (0-10) mg/dL Influenza Type A Ag (NEGATIVE) Influenza Type B Ag (NEGATIVE) RSV (PCR) (NEGATIVE) SARS-CoV-2 (PCR) (NEGATIVE) 0002 CT/ABDOMEN AND PELVIS W/0 CONTRAS CLINICAL HISTORY:right renal stone COMPARISON:CT abdomen dated 04/13/2023. TECHNIQUE:Contiguous axial images were obtained from the level of the diaphragm to the pubic symphysis without intravenous or oral contrast. Coronal and sagittal reconstructions were likewise performed and indicated to increase the sensitivity for detecting clinically relevant pathology. CT scan was performed according to ALARA (as low as reasonable achievable). FINDINGS: The visualized lung bases are clear. Evaluation of the abdominal and pelvic visceral organs is limited without intravenous contrast. The liver is enlarged in size (approximately 19 cm) with nodular surface contour. Small hypodense area in the segment V of liver (approximately 1 cm).The unenhanced spleen, pancreas, and adrenal glands are grossly unremarkable. The gallbladder shows multiple calculi in the lumen with no CT evidence of cholecystitis. The kidneys are normal in size and attenuation . There is an obstructing calculus of size approx 4 mm in the right distal most ureter immediately proximal to vesicoureteric junction with upstream mild hydroureteronephrosis and perinephric fat stranding. Small non-obstructing right renal concretion in the interpolar calyx.There is no hydronephrosis or perinephric stranding on left side. The left ureter is normal in caliber. No adenopathy or fluid collections are seen. No evidence of focal or diffuse bowel wall thickening or evidence of bowel obstruction is seen. The appendix is unremarkable in the right lower quadrant. The aorta is normal in caliber. The urinary bladder is normal in contour. Pelvic viscera are grossly unremarkable. No aggressive appearing osseous lesions are identified. IMPRESSION: 1. Obstructing right distal most ureteric calculus with upstream hydroureteronephrosis and perinephric fat stranding. Non-obstructing right renal concretion. 2. Cholelithiasis without CT evidence of cholecystitis. 3. Changes of chronic liver parenchymal disease. Small hypodense area in the segment V of liver - stable. 4. No significant interval change since previous CT. - Progress Progress: unchanged Progress Note: 04/14/23 06:32 Considering second CAT scan report which is showing obstructive uropathy on the right side and stone has not moved at all from the previous CAT scan report, and patient is developing hydronephrosis, recontacted for different hospital nearby including [facility] and [facility] but there is no urology service available. So we contacted [facility] and Dr. Mo accepted the patient. She advised patient to be transferred to [facility] emergency room and then she will take care of the patient. Patient is otherwise alert awake oriented in no other symptoms so we will transfer patient via private car. I talked to the patient and her and they are agreeing with the plan Discussed with Dr.: Other (Dr Zapata at [facility]) Counseled pt/family regarding: lab results, diagnosis, need for follow-up, rad results Medical Desision Making - Independent Historian Additional History obtained from: Spouse - Discussion of managment Care discussed with:: hospitalist Reviewed:: Test results, Need for additional workup Agreed on:: Treatment plan, need for follow-up, decision to admit, place in obs - Diagnostic Testing Diagnostic test were ordered, analyzed, and reviewed by me: Yes Radiological Interpretation: Reviewed by me - Risk of complications The pt has a mod risk of morbidity or mortality based on: Need for prescription drug management - Departure Departure Disposition: Transfer ([facility], Dr Zapata (urologist) will see her) Clinical Impression: Syncope and collapse, Pyelonephritis due to Escherichia coli, Hydronephrosis with urinary obstruction due to ureteral calculus Condition: Stable Critical Care Time: No Critical Care Time(excluding separately billable procedures): Critical 30-74 mins Referrals: ANAI ALLAN MD [Primary Care Provider] - Follow up/PCP as directed Additional Instructions: Discharge/Care Plan NBA CALLES was seen on 04/14/23 in the Emergency Room. The patient was counseled regarding Diagnosis,Lab results, Imaging studies, need for follow up and when to return to the Emergency Room. Prescriptions given: Discharge Note I have spoken with the patient and/or caregivers. I have explained the patient's condition, diagnosis and treatment plan based on the information available to me at this time. I have answered the patient's and/or caregiver's questions and addressed any concerns. The patient and/or caregivers have as good understanding of the patient's diagnosis, condition and treatment plan as can be expected at this point. The vital signs have been stable. The patient's condition is stable and appropriate for discharge from the emergency department. The patient will pursue further outpatient evaluation with the primary care physician or other designated or consulting physician as outlined in the discharge instructions. The patient and/or caregivers are agreeable to this plan of care and follow-up instructions have been explained in detail. The patient and/or caregivers have received these instruction. The patient/and or caregivers are aware that any significant change in condition or worsening of symptoms should prompt an immediate return to this or the closest emergency department or call 911. NBA CALLES was seen on 04/14/23 n the Emergency Room. At that time you were treated for an emergent condition, during your visit Laboratory, Radiology and/or other procedures may have been ordered. It is very important that you follow-up with your Primary Care Physician ANAI ALLAN within the next 24-48 hours to review your Emergency Room visit and the final results of testing that was ordered. Some test results such as Urine Cultures, Blood Cultures, and other cultures if ordered will not be finalized for 24-48 hours. If you do not have a Primary Care Provider please call the medical records department at [phone] ext [phone] to obtain a copy of your results or you may sign into our patient portal to obtain these results by visiting us @ [email or web address] and completing the following steps: 1. Click on the Patient Portal link 2. Click the Patient Self Enrollment Link to complete the enrollment form and entering your 3. Once the enrollment form is completed you will receive an email with a temporary ID and password at the email address you provided. 4. Next choose a user name and password. Your user name must be at least 4 characters long and your password must be at least 4 characters long. 5. Choose a security question from the list and provide your answer to the question. If you already have signed into the Health Portal you may access your Health Care Information 05/11 by the following steps: 1. Login to our website @ [email or web address] 2. Enter your original user name and password. FAQS The [facility] Health Portal is an online tool that contains your Lab Results, Radiology Reports, Visit History, Discharge Instructions and Health Summary Lab and Radiology Results will not be available for 72 hours on the portal. The Portal is a secure site, passwords are encryted and URLs are re-written so they cannot be copied and pasted. You and authorized family members are the only ones who can access your Portal. Also there is a timeout feature that protects your information if you leave the Portal page open. If you have technical difficulty please use the Contact Us link on the page this will allow you to submit any questions you have regarding the Portal or you may contact the Medical Record Department at [phone] ext [phone].
[2023-04-14] MEDS ORDERED: ROCEPHIN 1 Gm-D5w 50 ml Bag** 1 G/50 ML IVPB IV ONE (03:28)
[2023-04-14] MEDS: Sodium Chloride 0.9% 1000 ML 1,000 ML IV SCH ×4 (03:29→06:35)
[2023-04-14 04:00] LABS: INFLUENZA A NEGATIVE (NEGATIVE); INFLUENZA B NEGATIVE (NEGATIVE); RESPIRATORY SYNCTIAL VIRUS NEGATIVE (NEGATIVE); SARS-CoV-2 Xpert Express NEGATIVE (NEGATIVE)
[2023-04-14 04:38] LABS: Appearance Turbid (Clear); Bacteria Many /HPF (None Seen); Bilirubin Small (Negative); Blood Large (Negative); Epithelial Cells Moderate /HPF (None Seen); Glucose, Urine Negative (Negative); Ketones Trace (Negative); Leukocyte Esterase Large (Negative); Nitrite Positive (Negative); Protein,Urine Dip 100 (Negative); RBC 21-50 /HPF (0-5); WBC >100 /HPF (0-5)
[2023-04-14 04:44] LABS: Amphetamine,Urine NEGATIVE (NEGATIVE); Barbiturate,Urine NEGATIVE (NEGATIVE); Benzodiazepine,Urine NEGATIVE (NEGATIVE); Cocaine,Urine NEGATIVE (NEGATIVE); Methadone,Urine NEGATIVE (NEGATIVE); Opiate,Urine POSITIVE (NEGATIVE); PCP,Urine NEGATIVE (NEGATIVE); THC,Urine NEGATIVE (NEGATIVE)
[2023-04-14 05:02] LABS: ADD URINE CULTURE? NO (NO)
--- NOTE | 2023-04-14 05:27 | XRAY ---
CLINICAL HISTORY:right renal stone COMPARISON:CT abdomen dated 04/13/2023. TECHNIQUE:Contiguous axial images were obtained from the level of the diaphragm to the pubic symphysis without intravenous or oral contrast. Coronal and sagittal reconstructions were likewise performed and indicated to increase the sensitivity for detecting clinically relevant pathology. CT scan was performed according to ALARA (as low as reasonable achievable). FINDINGS: The visualized lung bases are clear. Evaluation of the abdominal and pelvic visceral organs is limited without intravenous contrast. The liver is enlarged in size (approximately 19 cm) with nodular surface contour. Small hypodense area in the segment V of liver (approximately 1 cm).The unenhanced spleen, pancreas, and adrenal glands are grossly unremarkable. The gallbladder shows multiple calculi in the lumen with no CT evidence of cholecystitis. The kidneys are normal in size and attenuation . There is an obstructing calculus of size approx 4 mm in the right distal most ureter immediately proximal to vesicoureteric junction with upstream mild hydroureteronephrosis and perinephric fat stranding. Small non-obstructing right renal concretion in the interpolar calyx.There is no hydronephrosis or perinephric stranding on left side. The left ureter is normal in caliber. No adenopathy or fluid collections are seen. No evidence of focal or diffuse bowel wall thickening or evidence of bowel obstruction is seen. The appendix is unremarkable in the right lower quadrant. The aorta is normal in caliber. The urinary bladder is normal in contour. Pelvic viscera are grossly unremarkable. No aggressive appearing osseous lesions are identified. IMPRESSION: 1. Obstructing right distal most ureteric calculus with upstream hydroureteronephrosis and perinephric fat stranding. Non-obstructing right renal concretion. 2. Cholelithiasis without CT evidence of cholecystitis. 3. Changes of chronic liver parenchymal disease. Small hypodense area in the segment V of liver - stable. 4. No significant interval change since previous CT. Electronically Signed by: Dr. Misael Velarde MD. (04/14/2023 05:22:54 EST)
[2023-04-14 06:30] VITALS: PULSE 104; RESP 16; TEMP 98.7
[2023-04-14 06:35] VITALS: O2SAT 96
[2023-04-14 06:46] VITALS: BP 93/54
--- NOTE | 2023-04-14 08:39 | XRAY ---
Indication: Confusion. Comparison: November 07, 2022 Portable chest slightly less inflated without focal infiltrate, consolidation, or large effusion. Heart not enlarged again with cardiac valve replacement. Bony thorax intact again with osteopenia and minimal degenerative changes. Impression: Continued nonacute chest with chronic features.
== END 2023-04-14 07:01 | disposition short-term general hospital (02) ==
LOC: ED 01:36
DX: Z04.3 Encounter for examination and observation following other accident (principal); R55 Syncope and collapse; N13.2 Hydronephrosis with renal and ureteral calculous obstruction; N10 Acute pyelonephritis; B96.20 Unspecified Escherichia coli [E. coli] as the cause of diseases classified elsewhere; E78.5 Hyperlipidemia, unspecified; I10 Essential (primary) hypertension; E11.42 Type 2 diabetes mellitus with diabetic polyneuropathy; Z79.84 Long term (current) use of oral hypoglycemic drugs; Z79.899 Other long term (current) drug therapy; Z20.828 Contact with and (suspected) exposure to other viral communicable diseases
CPT/HCPCS: 0241U; 36000; 36415; 70450; 71045; 74176; 80053; 80307; 81001; 82077; 84484; 85025; 93005; 96360; 96365; 99285; 99291; J0696; A9270-GY

== ENCOUNTER 2023-09-11 15:28 | Emergency (ER) | payer MEDICARE ==
--- NOTE | 2023-09-11 15:36 | ERPHSYRPT ---
- History of Present Illness Time Seen by Provider: 09/11/23 15:36 Source: patient Exam Limitations: no limitations Physician History: This is an obese 68-year-old white female patient who presents with right-sided abdominal wall spasms. Patient does not have chest pain. She has no chest palpitations. Patient has no prior episodes of these types of symptoms. She is not short of breath. She does not have nausea vomiting or diarrhea symptoms. She is not on any new medications. The symptoms started today and she has had several episodes. Patient has a history of hypertension, hyperlipidemia and hypothyroidism. Patient also has type 2 diabetes, coronary artery disease and peripheral neuropathy. Timing/Duration: today Severity: mild Modifying Factors: Improves With: nothing Associated Symptoms: denies symptoms Allergies/Adverse Reactions: No Known Drug Allergies Allergy (Verified 04/14/23 01:40) Home Medications: Amlodipine Besylate [Norvasc] 2.5 mg PO DAILY 04/13/23 [History] Atorvastatin Calcium [Lipitor] 20 mg PO DAILY 04/13/23 [History] Gabapentin [Neurontin ] 300 mg PO TID 04/13/23 [History] Levothyroxine Sodium [Synthroid] 125 mcg PO DAILY 04/13/23 [History] Metformin HCl [Metformin ER Osmotic] 1,000 mg PO DAILY 04/13/23 [History] Hx Tetanus, Diphtheria Vaccination/Date Given: Yes Hx Influenza Vaccination/Date Given: No Hx Pneumococcal Vaccination/Date Given: No Travel Risk - International Travel Have you traveled outside of the country in past 3 weeks: No - Emerging Infectious Disease Are you exhibiting symptoms associated with any current EIDs: No - Review of Systems Constitutional: No Symptoms Eyes: No Symptoms Ears, Nose, & Throat: No Symptoms Respiratory: No Symptoms Cardiac: No Symptoms Abdominal/Gastrointestinal: Other (No abdominal pain but abdominal wall spasm in the right side of her abdomen. Primarily upper quadrant) Genitourinary Symptoms: No Symptoms Musculoskeletal: No Symptoms Skin: No Symptoms Neurological: No Symptoms Psychological: No Symptoms Endocrine: No Symptoms Hematologic/Lymphatic: No Symptoms Immunological/Allergic: No Symptoms All Other Systems: Reviewed and Negative - Past Medical History Pertinent Past Medical History: Yes Neurological History: Peripheral Neuropathy Cardiac History: Coronary Artery Disease, High Cholesterol, Hypertension, Other Respiratory History: No Pertinent History Endocrine Medical History: Diabetes Type II, Hypothyroidism, Other Musculoskeletal History: No Pertinent History Female Reproductive Disorders: Breast Cancer Other Medical History: BREAST CANCER 2013 [place] WITH RADIATION AND LUMPECTOMY AND HORMONE PILL WHICH PATIENT REPORTS IS THE MED SHE HAD SIDE EFFECTS. THYROIDECTOMY 2005. HEART SURGERY FOR VALVE REPAIR AND VALVE REPLACEMENT 2019 - Past Surgical History Past Surgical History: Yes Cardiac: Valve Replacement Gastrointestinal: Appendectomy Female Surgical History: Hysterectomy Other Surgical History: R lumpectomy - Social History Smoking Status: Never smoker Exposure to second hand smoke: No Drug Use: none Patient Lives Alone: No - Nursing Vital Signs Nursing Vital Signs: Initial Vital Signs Temperature 97.7 F 09/11/23 15:44 Pulse Rate 91 H 09/11/23 15:44 Respiratory Rate 20 09/11/23 15:44 Blood Pressure 134/60 09/11/23 15:44 O2 Sat by Pulse Oximetry 92 L 09/11/23 15:44 Pain Scale Pain Intensity 0 - Physical Exam General Appearance: no apparent distress, alert, anxiety, obese Eye Exam: PERRL/EOMI, eyes nml inspection Ears, Nose, Throat Exam: normal ENT inspection, moist mucous membranes Neck Exam: normal inspection, non-tender, supple, full range of motion Respiratory Exam: normal breath sounds, lungs clear, airway intact, No chest tenderness, No respiratory distress Cardiovascular Exam: regular rate/rhythm, normal heart sounds, normal peripheral pulses Gastrointestinal/Abdomen Exam: soft, normal bowel sounds, No tenderness, No mass Pelvic Exam: not done Rectal Exam: not done Back Exam: normal inspection, normal range of motion, No CVA tenderness, No vertebral tenderness Extremity Exam: normal inspection, normal range of motion, pelvis stable Neurologic Exam: alert, oriented x 3, cooperative, media/instructional designer II-XII nml as tested, normal mood/affect, nml cerebellar function, nml station & gait, sensation nml Skin Exam: normal color, warm, dry Lymphatic Exam: No adenopathy SpO2 Interpretation: normal O2 Delivery: Room Air - Course Nursing assessment & vital signs reviewed: Yes EKG Interpreted by Me: RATE (92), Sinus Rhythm, NORMAL AXIS, NORMAL INTERVALS, NORMAL QRS, NORMAL ST-T, Other (Ventricular premature complexes. No evidence of acute ischemia on today's twelve-lead EKG.) Ordered Tests: Active Orders 24 hr Category Date Time Status EKG-ER Only STAT Care 09/11/23 16:10 Active ABDOMEN AND PELVIS W/0 CONTRAS [CT] Stat Exams 09/11/23 16:11 Completed AMYLASE Stat Lab 09/11/23 16:15 Completed CBC W DIFF Stat Lab 09/11/23 16:15 Completed CMP Stat Lab 09/11/23 16:15 Completed LIPASE Stat Lab 09/11/23 16:15 Completed MAGNESIUM Stat Lab 09/11/23 16:15 Completed TROPONIN Q4H Lab 09/11/23 16:15 Completed TROPONIN Q4H Lab 09/11/23 20:15 Ordered TROPONIN Q4H Lab 09/12/23 00:15 Ordered Lab/Rad Data: Laboratory Result Diagrams 09/11/23 16:15 09/11/23 16:15 Laboratory Results 09/11/23 09/11/23 09/11/23 Range/Units 16:15 16:15 16:15 WBC 7.5 (4.0-10.5) x10^3/uL RBC 4.23 (4.1-5.4) x10^6/uL Hgb 13.2 (12.0-16.0) g/dL Hct 39.1 (35-47) % MCV 92.4 (78-100) fL MCH 31.2 (26-32) pg MCHC 33.8 (32-36) g/dL RDW 13.6 (11.5-14.0) % Plt Count 168 (150-450) x10^3/uL MPV 10.9 (7.5-11.0) fL Gran % 71.9 H (36.0-66.0) % Immature Gran % (Auto) 0.5 H (0.00-0.4) % Nucleat RBC Rel Count 0.0 (0.00-0.1) % Eos # (Auto) 0.13 (0-0.5) x10^3/uL Immature Gran # (Auto) 0.04 H (0.00-0.03) x10^3u/L Absolute Lymphs (auto) 1.34 (1.0-4.6) x10^3/uL Absolute Monos (auto) 0.52 (0.0-1.3) x10^3/uL Absolute Nucleated RBC 0.00 (0.00-0.01) x10^3u/L Lymphocytes % 17.9 L (24.0-44.0) % Monocytes % 6.9 (0.0-12.0) % Eosinophils % 1.7 (0.00-5.0) % Basophils % 1.1 (0.0-0.4) % Absolute Granulocytes 5.38 (1.4-6.9) x10^3/uL Basophils # 0.08 (0-0.4) x10^3/uL Sodium 136 (135-145) mmol/L Potassium 3.7 (3.5-5.1) mmol/L Chloride 103 (98-107) mmol/L Carbon Dioxide 26 (22-30) mmol/L Anion Gap 10.1 (5-15) MEQ/L BUN 9 (7-17) mg/dL Creatinine 0.47 L (0.52-1.04) mg/dL Estimated GFR 104.3 ML/MIN Glucose 192 H (74-106) mg/dL Calcium 9.0 (8.4-10.2) mg/dL Magnesium 1.9 (1.6-2.3) mg/dL Total Bilirubin 0.70 (0.2-1.3) mg/dL AST 37 H (14-36) U/L ALT 25 (0-35) U/L Alkaline Phosphatase 131 H (38-126) U/L Troponin I < 0.012 (0.000-0.033) ng/mL Serum Total Protein 7.6 (6.3-8.2) g/dL Albumin 3.9 (3.5-5.0) g/dL Amylase 71 (30-110) U/L Lipase 86 (23-300) U/L - Progress Progress: improved, re-examined Progress Note: 09/11/23 17:13 My medical decision making and the assignment of moderate complexity to this patient's medical issue today is based on review of the patient's past medical history, review of the patient's medication list, review the patient drug allergy list, history present illness and physical findings on examination. The workup in this patient includes CBC, CMP, magnesium level, twelve-lead EKG, troponin level, CT scan of the abdomen pelvis without contrast. I interpreted the patient's laboratory data results. There is no evidence of any acute or emergent medical issue based on the patient's laboratory data results. Differential diagnosis includes anxiety, muscular spasm, electrolyte abnormal ities, intra-abdominal/pelvic abnormalities. CT scan of the abdomen pelvis without contrast was interpreted by the radiologist and I reviewed the impression. Pression states contracted gallbladder with tiny cholelithiasis present. There is chronic cirrhotic liver without ascites. There is probably a benign subcentimeter hepatic lesion. There is bilateral hip degenerative arthropathy. There are bilateral renal cyst present. Counseled pt/family regarding: lab results, diagnosis, need for follow-up, rad results Medical Desision Making - Independent Historian Additional History obtained from: Spouse - Diagnostic Testing Diagnostic test were ordered, analyzed, and reviewed by me: Yes Radiological Interpretation: Reviewed by me, Teleradiologist Report - Risk of complications Low Risk: Low risk of morbidity from additional dx testing or treatment - Departure Departure Disposition: Home Clinical Impression: Cholelithiasis, Cirrhosis of liver, Renal cyst Condition: Stable Critical Care Time: No Referrals: ANAI ALLAN MD [Primary Care Provider] - Follow up/PCP as directed Additional Instructions: Continue medications as prescribed. Call your primary care provider tomorrow, 09/12/2023, to make arranges for follow-up appointment and for further evaluation management.
[2023-09-11 15:49] VITALS: TEMP 97.7
[2023-09-11 16:25] LABS: Absolute Neutrophil Ct (ANC) 5.38 x10^3/uL (1.4-6.9); BASOPHIL % 1.1 % (0.0-0.4); Basophil (Absolute #) 0.08 x10^3/uL (0-0.4); Eosinophil % 1.7 % (0.00-5.0); Eosinophil (Absolute #) 0.13 x10^3/uL (0-0.5); Hematocrit 39.1 % (35-47); Hemoglobin 13.2 g/dL (12.0-16.0); IMMATURE GRAN # 0.04 x10^3u/L (0.00-0.03); IMMATURE GRAN % 0.5 % (0.00-0.4); Lymphocyte (Absolute #) 1.34 x10^3/uL (1.0-4.6); Lymphocytes % 17.9 % (24.0-44.0); Mean Cell Volume 92.4 fL (78-100); Mean Corpuscular Hemoglobin 31.2 pg (26-32); Mean Corpuscular Hgb Concent. 33.8 g/dL (32-36); Mean Platelet Volume 10.9 fL (7.5-11.0); Monocyte (Absolute #) 0.52 x10^3/uL (0.0-1.3); Monocytes % 6.9 % (0.0-12.0); Neutrophil % 71.9 % (36.0-66.0); Platelet Count 168 x10^3/uL (150-450); Red Blood Count 4.23 x10^6/uL (4.1-5.4); Red Cell Distribution Width 13.6 % (11.5-14.0); White Blood Count 7.5 x10^3/uL (4.0-10.5)
[2023-09-11 16:35] LABS: ALBUMIN 3.9 g/dL (3.5-5.0); ANION GAP 10.1 MEQ/L (5-15); BILIRUBIN,TOTAL 0.7 mg/dL (0.2-1.3); Creatinine 1 0.47 mg/dL (0.52-1.04); EST GLOMERULAR FILTRATION RATE 104.3 ML/MIN; MAGNESIUM 1.9 mg/dL (1.6-2.3); Potassium 3.7 mmol/L (3.5-5.1); Total Protein 7.6 g/dL (6.3-8.2)
--- NOTE | 2023-09-11 16:51 | XRAY ---
Indication: Abdominal spasms. Multiple contiguous axial images obtained through abdomen and pelvis without contrast. Comparison: April 14, 2023 Lung bases are clear. Heart borderline enlarged again with aortic valve replacement. Stomach distended with food/fluid. Noncontrasted stomach and bowel loops appear nonobstructed. Again appendectomy and hysterectomy reported. No free fluid/air. Gallbladder partially contracted with increasing tiny gallstones. No abnormal soakers supervisor distention. Liver again demonstrates micronodular margins favoring cirrhosis. Right lobe liver demonstrates stable 6 mm hypodensity adjacent to gallbladder favored to be benign given stability. Stable tiny left mid renal exophytic and small right mid renal cysts. Remaining liver, pancreas, spleen, adrenal glands, kidneys, ureters, bladder, and aorta are unremarkable for noncontrast exam. Osseous structures intact with stable mild degenerative changes both hips. No ventral or inguinal hernias. Impression: 1. Worsening tiny cholelithiasis. 2. Again chronic findings including cirrhotic liver without ascites, probably benign subcentimeter hepatic hypodense lesion, bilateral renal cysts, and bilateral hip degenerative arthropathy. 3. Remaining CT abdomen/pelvis without contrast exam is negative.
[2023-09-11 17:21] VITALS: BP 108/66; PULSE 87; RESP 17; O2SAT 96
== END 2023-09-11 17:49 | disposition home or self-care (01) ==
LOC: ED 15:28
DX: K80.20 Calculus of gallbladder without cholecystitis without obstruction (principal); K74.60 Unspecified cirrhosis of liver; N28.1 Cyst of kidney, acquired; R25.2 Cramp and spasm; I10 Essential (primary) hypertension; E78.5 Hyperlipidemia, unspecified; E11.42 Type 2 diabetes mellitus with diabetic polyneuropathy; Z79.84 Long term (current) use of oral hypoglycemic drugs; Z79.899 Other long term (current) drug therapy
CPT/HCPCS: 36000; 36415; 74176; 80053; 82150; 83690; 83735; 84484; 85025; 93005; 99284

== ENCOUNTER 2024-06-15 08:58 | Emergency (ER) | payer MEDICARE ==
[2024-06-15 09:52] VITALS: TEMP 97.8; O2SAT 97
--- NOTE | 2024-06-15 10:07 | ERPHSYRPT ---
- History of Present Illness Time Seen by Provider: 06/15/24 10:02 Source: patient Exam Limitations: no limitations Patient Subjective Stated Complaint: C/O pain to right knee and LLE following a fall at home on 06/12/24. States she stepped off the side of a step; didn't see it right due to dark sunglasses. Denies hitting head or any other injuries. Triage Nursing Assessment: Patient brought back to ER in a W/C. Patient assisted from chair to bed by one staff; s/s of pain present during transfer. LLE wrapped with coban tightly; patient states it helps with the pain. Coban removed. LLE noted to be swollen with yellow fading bruising to anterior LLE and bruising and swelling noted to left ankle. No skin alterations noted to right knee. Pedal pulses present and equal in both feet. Physician History: 69-year-old female presents to our ED for pain to her right knee left leg left foot ankle area. Patient states she tripped at home. Patient was outdoors. She wears transitional glasses that tends in the sun. Patient walked into her home patient states her glasses were dark she reportedly missed stepped and fell. Injury occurred Saturday 3 days ago. Patient has been walking around using a pickup walker. She normally does not require an assistive device. Patient self medicated with leftover hydrocodone. No other injuries reported. No BHT or LOC. No neck pain. Cervical spine cleared clinically. Patient's pain described as an ache that is worse when she ambulates. Pain at the right knee left leg and left foot and ankle. Symptoms are mild to moderate in intensity. Pain worse with weightbearing. Pain improved with rest. Patient at bedside. They voiced no other complaints or concerns at this time. Portions of this note were created with voice recognition technology. There may be grammatical, spelling, punctuation or sound alike errors Method of Injury: fell Occurred: days ago (3 days ago) Quality: constant Severity of Pain-Max: moderate Severity of Pain-Current: mild Lower Extremities Pain: leg: left, knee: right, foot: left, ankle: left Modifying Factors: Improves With: movement (Movement and weightbearing rest his pain) Associated Symptoms: none Allergies/Adverse Reactions: No Known Drug Allergies Allergy (Verified 06/15/24 09:38) Home Medications: Amlodipine Besylate [Norvasc] 2.5 mg PO DAILY 04/13/23 [History] Atorvastatin Calcium [Lipitor] 40 mg PO DAILY 04/13/23 [History] Levothyroxine Sodium [Synthroid] 125 mcg PO DAILY 04/13/23 [History] Hx Tetanus, Diphtheria Vaccination/Date Given: Yes Hx Influenza Vaccination/Date Given: No Hx Pneumococcal Vaccination/Date Given: No Immunizations Up to Date: Yes Travel Risk - International Travel Have you traveled outside of the country in past 3 weeks: No - Emerging Infectious Disease Are you exhibiting symptoms associated with any current EIDs: No - Review of Systems Constitutional: No Symptoms Eyes: No Symptoms Ears, Nose, & Throat: No Symptoms Respiratory: No Symptoms, No Cough, No Dyspnea Cardiac: No Symptoms, No Chest Pain, No Edema, No Syncope Abdominal/Gastrointestinal: No Symptoms, No Abdominal Pain, No Nausea, No Vomiting, No Diarrhea Genitourinary Symptoms: No Symptoms, No Dysuria Musculoskeletal: No Symptoms, No Back Pain, No Neck Pain Skin: No Symptoms, No Rash Neurological: No Symptoms, No Dizziness, No Focal Weakness, No Sensory Changes Psychological: No Symptoms Endocrine: No Symptoms Hematologic/Lymphatic: No Symptoms Immunological/Allergic: No Symptoms All Other Systems: Reviewed and Negative - Past Medical History Pertinent Past Medical History: Yes Neurological History: Peripheral Neuropathy Cardiac History: Coronary Artery Disease, High Cholesterol, Hypertension, Other Respiratory History: No Pertinent History Endocrine Medical History: Diabetes Type II, Hypothyroidism, Other Musculoskeletal History: No Pertinent History Psycho-Social History: No Pertinent History Female Reproductive Disorders: Breast Cancer 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 HEART SURGERY FOR VALVE REPAIR AND VALVE REPLACEMENT 2018 - Social History Smoking Status: Never smoker Exposure to second hand smoke: No Drug Use: none - Social Determinants of Health Will the patient participate in the screening: Yes Do you worry about a steady place to live?: No Do you have any problems with any of the following?: No known problems In the past 12 months,have you had to go without utilities?: No Transportation Issues: No Has anyone in your support network made you feel unsafe?: No Have you or anyone in your house had to go w/o enough food: No - Nursing Vital Signs Nursing Vital Signs: Initial Vital Signs Temperature 97.8 F 06/15/24 09:30 Pulse Rate 83 06/15/24 09:30 Respiratory Rate 17 06/15/24 09:30 Blood Pressure 146/64 06/15/24 09:30 O2 Sat by Pulse Oximetry 97 06/15/24 09:30 Pain Scale Pain Intensity 5 - Physical Exam General Appearance: no apparent distress, alert Eyes, Ears, Nose, Throat Exam: moist mucous membranes Neck Exam: normal inspection, non-tender, supple, full range of motion Cardiovascular/Respiratory Exam: chest non-tender, regular rate/rhythm, no respiratory distress Gastrointestinal/Abdominal Exam: non-tender Back Exam: normal inspection, No vertebral tenderness Hips Exam: bilateral: non-tender, normal inspection, normal range of motion, no evidence of injury Legs Exam: right leg: non-tender, normal inspection, normal range of motion, no evidence of injury, left leg: pain, soft tissue tenderness, swelling (Left lower extremity is neurovascularly intact distally compartments are soft cap refill less than 2 seconds.) Knees Exam: right knee: pain, swelling, other (Right lower extremity is neurovascular tact distally compartments are soft cap refill less than 2 seconds.), left knee: non-tender, normal inspection, normal range of motion, no evidence of injury Ankle Exam: right ankle: non-tender, normal inspection, normal range of motion, no evidence of injury, left ankle: pain, soft tissue tenderness, other Foot Exam: right foot: non-tender, normal inspection, normal range of motion, no evidence of injury, left foot: pain, soft tissue tenderness Neuro/Tendon Exam: normal sensation, normal motor functions Mental Status Exam: alert, oriented x 3, cooperative Skin Exam: normal color, warm, dry SpO2 Interpretation: normal SpO2: 97 O2 Delivery: Room Air - Course Nursing assessment & vital signs reviewed: Yes - Radiology Exams Foot X-ray Interpretation: Teleradiologist Report (Left foot shows osteopenia heel spur) Knee X-ray Interpretation: Teleradiologist Report (No acute findings) Lower Leg X-ray Interpretation: Teleradiologist Report (No acute findings left leg) Ordered Tests: Active Orders 24 hr Category Date Time Status FOOT (MINIMUM 3 VIEWS) Stat Exams 06/15/24 10:00 Completed KNEE (1 OR 2 VIEW) Stat Exams 06/15/24 09:59 Completed LOWER LEG Stat Exams 06/15/24 09:59 Completed Medication Summary Discontinued Medications Generic Name Dose Route Start Last Admin Trade Name Malinda PRN Reason Stop Dose Admin Ketorolac Tromethamine 30 mg 06/15/24 09:58 06/15/24 10:47 Ketorolac Tromethamine 30 Mg/Ml Inj IM 06/15/24 09:59 30 mg STAT ONE Administration Ketorolac Tromethamine Confirm 06/15/24 10:46 Ketorolac Tromethamine 30 Mg/Ml Inj Administered 06/15/24 10:47 Dose 30 mg .ROUTE .STK-MED ONE - Progress Progress: improved Progress Note: 69-year-old female presents to emergency department for evaluation status post fall. Patient complains of pain to her right knee left leg and left foot and ankle area. Physical exam reveals some bruising to her left leg left foot. Left ankle range of motion appears to be within normal limits. X-ray of the left leg and foot and ankle area are negative for fracture dislocation. X-ray of the right knee is negative for fracture dislocation. Patient's injury appears to be soft tissue. Patient received Toradol for pain control. Pain improved. Patient requesting Teddy wrap's to both knees. We will provide both Teddy wrap's prior to discharge. Patient referred to orthopedics for follow-up. Patient has a walker at home she will use in the interim. Patient otherwise feels well. She voices no other complaints or concerns at this time. Portions of this note were created with voice recognition technology. There may be grammatical, spelling, punctuation or sound alike errors Complexity of problem addressed is moderate acute complicated no critical care time. Complex of data reviewed and analyzed is moderate. Test ordered chest reviewed results analyzed and correlated clinically with history and physical exam. Risk of complication and or risk of morbidity/mortality of patient management is moderate. A prescription for Toradol forwarded to patient's pharmacy. Vital stable. Time spent to discharge patient is approximately 15 minutes. Plan of care established for shared decision making. No social determinants of health present to impede follow-up. Portions of this note were created with voice recognition technology. There may be grammatical, spelling, punctuation or sound alike errors 06/15/24 10:58 Counseled pt/family regarding: diagnosis, need for follow-up, rad results - Departure Departure Disposition: Home Clinical Impression: Fall, Left heel spur, Osteopenia, Contusion of foot, left, Left ankle sprain, Right knee sprain Condition: Stable Critical Care Time: No Referrals: ANAI ALLAN MD [Primary Care Provider] - Follow up/PCP as directed Instructions: Heel Spurs, Sprains, Preventing falls - ED discharge instructions Additional Instructions: Discharge/Care Plan NBA CALLES was seen on 06/15/24 in the Emergency Room. The patient was counseled regarding Diagnosis,Lab results, Imaging studies, need for follow up and when to return to the Emergency Room. Prescriptions given: Discharge Note I have spoken with the patient and/or caregivers. I have explained the patient's condition, diagnosis and treatment plan based on the information available to me at this time. I have answered the patient's and/or caregiver's questions and addressed any concerns. The patient and/or caregivers have as good understanding of the patient's diagnosis, condition and treatment plan as can be expected at this point. The vital signs have been stable. The patient's condition is stable and appropriate for discharge from the emergency department. The patient will pursue further outpatient evaluation with the primary care jack her or other designated or consulting physician as outlined in the discharge instructions. The patient and/or caregivers are agreeable to this plan of care and follow-up instructions have been explained in detail. The patient and/or caregivers have received these instruction. The patient/and or caregivers are aware that any significant change in condition or worsening of symptoms should prompt an immediate return to this or the closest emergency department or call 911. Prescriptions: Ketorolac Trometh 10 mg Tab [TORAdol 10 MG TABLET] 10 mg PO TID 5 Days #15 tablet Outpatient Orders: Ortho Referral Time Frame: 1 Day, Facility: [facility], Location: ORTHO CLINIC
--- NOTE | 2024-06-15 10:29 | XRAY ---
Indication: Pain following fall. Comparison: None 3 nonweightbearing views left foot demonstrate osteopenia, small heel spurs, and small navicular accessory ossicle. No acute bony, articular, or soft tissue abnormalities.
--- NOTE | 2024-06-15 10:29 | XRAY ---
Indication: Pain following fall. Comparison: None AP/crosstable lateral right knee demonstrates osteopenia and small suprapatella spur. No acute bony, articular, or soft tissue abnormalities.
--- NOTE | 2024-06-15 10:31 | XRAY ---
Indication: Pain following fall. Comparison: None 2 view left lower leg demonstrates osteopenia and small spurring patella/calcaneus. No acute bony, articular, or soft tissue abnormalities.
[2024-06-15] MEDS ORDERED: TORAdol 30 mg Injection ONE (10:46)
[2024-06-15] MEDS: TORAdol 30 mg Injection IM ONE (10:47)
[2024-06-15 10:53] VITALS: PULSE 80
[2024-06-15 11:59] VITALS: BP 109/62; RESP 18
== END 2024-06-15 11:59 | disposition home or self-care (01) ==
LOC: ED 08:58
DX: S83.91XA Sprain of unspecified site of right knee, initial encounter (principal); S93.402A Sprain of unspecified ligament of left ankle, initial encounter; S90.32XA Contusion of left foot, initial encounter; W10.8XXA Fall (on) (from) other stairs and steps, initial encounter; M77.32 Calcaneal spur, left foot; M85.872 Other specified disorders of bone density and structure, left ankle and foot; E78.5 Hyperlipidemia, unspecified; I10 Essential (primary) hypertension; E11.42 Type 2 diabetes mellitus with diabetic polyneuropathy; Z79.899 Other long term (current) drug therapy
CPT/HCPCS: 73560; 73590; 73630; 96372; 99283; 99284; J1885